=== PATIENT | female | born 1960 | race Caucasian/White ===

== ENCOUNTER 2024-08-10 16:48 | Emergency (ER) | payer BC ==
[~2024-08-10] VITALS: Ht 167.6 cm; Wt 82.5 kg
[~2024-08-10 16:48] MED LIST: EST1T PO; PROG200C11 PO
[2024-08-10] MEDS: charcoal, activated 50 GM/240 ML bottle PO ONE (17:24)
[2024-08-10 17:36] LABS: ABG BASE EXCESS -0.8 mmol/L (-2.0-3.0); ABG HCO3 24.1 mmol/L (21.0-28.0); ABG OXYGEN SATURATION 94.8 % (94.0-98.0); ABG PCO2 (T) 39.5 mmHg (32.0-45.0); ABG PO2 (T) 65.3 mmHg (83.0-108.0); ALLEN'S TEST POSITIVE; FCOHb 10.7 % (0.5-1.5); FHHb 4.6 % (0.0-5.0); FMetHb 0.3 % (0.0-1.5); FO2Hb 84.4 % (94.0-98.0); MODE ROOM AIR; PATIENT TEMPERATURE 36.4; TOTAL HEMOGLOBIN 15.8 G/dl (12.0-16.0)
[2024-08-10 17:40] LABS: BASOPHILS % (AUTO) 0.4 % (0-1); EOSINOPHILS % (AUTO) 0.6 % (0-6); HEMATOCRIT 43.6 % (35.0-45.0); HEMOGLOBIN 14.8 g/dl (12.0-16.0); LYMPHOCYTES # (AUTO) 1.5 X10'3 (1.1-4.8); LYMPHOCYTES % (AUTO) 21.7 % (21-51); MEAN CORPUSCULAR HEMOGLOBIN 31.9 PG (27.0-31.0); MEAN CORPUSCULAR VOLUME 93.8 FL (78-98); MONOCYTES # (AUTO) 0.4 X10'3 (0-0.9); MONOCYTES % (AUTO) 5.3 % (2-12); NEUTROPHILS # (AUTO) 5.1 X10'3 (1.8-7.7); PLATELET COUNT 252 X10'3 (140-440); RED BLOOD COUNT 4.64 X10'6 (4.20-5.60); RED CELL DISTRIBUTION WIDTH 13.6 % (11.5-14.5); WHITE BLOOD COUNT 7.1 X10'3 (4.5-11.0)
[2024-08-10 17:57] LABS: ALANINE AMINOTRANSFERASE 19 U/L (12-78); ALBUMIN 3.6 G/DL (3.4-5.0); ALBUMIN/GLOBULIN RATIO 1.2 (1.1-1.5); ALKALINE PHOSPHATASE 100 IU/L (46-116); ANION GAP 5 (8-16); ASPARTATE AMINO TRANSFERASE 12 U/L (10-37); BILIRUBIN,TOTAL 0.4 MG/DL (0.1-1.0); BLOOD UREA NITROGEN 14 MG/DL (7-18); BUN/CREATININE RATIO 18.4 (10.0-20.0); CALCIUM 9.3 MG/DL (8.5-10.1); CHLORIDE 108 MMOL/L (99-107); CREATININE 0.76 MG/DL (0.40-0.90); GLUCOSE 116 MG/DL (70-104); MAGNESIUM 1.9 MG/DL (1.5-2.4); POTASSIUM 3.7 MMOL/L (3.5-5.1); SODIUM 140 MMOL/L (135-145); TOTAL CARBON DIOXIDE 26.9 MMOL/L (24-32); TOTAL PROTEIN 6.6 G/DL (6.4-8.2); eCRCL 71 ML/MIN; eGFR 77 ML/MIN
[2024-08-10 19:15] LABS: ETHANOL < 10 MG/DL (<10); THYROID STIMULATING HORMONE 0.56 ulU/ml (0.34-4.50)
[2024-08-10 19:18] LABS: ACETAMINOPHEN < 2.0 UG/ML (10-30)
[2024-08-10] MEDS: normal saline 1000ml 1,000 ML IV ONE (19:25)
[2024-08-10 21:14] LABS: URINE AMPHETAMINE SCREEN NEGATIVE (Neg); URINE BARBITUATE SCREEN NEGATIVE (Neg); URINE BENZODIAZEPINES SCREEN NEGATIVE (Neg); URINE CANNABINOID SCREEN NEGATIVE (Neg); URINE COCAINE SCREEN NEGATIVE (Neg); URINE METHADONE SCREEN NEGATIVE (Neg); URINE OPIATE SCREEN NEGATIVE (Neg); URINE PHENCYCLIDINE SCREEN NEGATIVE (Neg)
[2024-08-10 23:37] LABS: SALICYLATE 5.6 MG/DL (4.0-20.0)
[2024-08-11] MEDS: acetaminophen 325mg tablet PO ONE (06:02)
[2024-08-11] MEDS: LIDOcaine 5% patch TP SCH ×2 (11:17→19:17)
[2024-08-11] MEDS: ibuprofen tablet 400 MG TABLET PO ONE ×2 (11:17→19:17)
[2024-08-11 18:52] LABS: BILIRUBIN,URINE NEGATIVE (Neg); CLARITY,URINE CLEAR (Clear); COLOR,URINE YELLOW (Yellow); GLUCOSE, URINE NEGATIVE (Neg); KETONES,URINE NEGATIVE (Neg); LEUKOCYTE ESTERASE ,URINE NEGATIVE (Neg); NITRITES, URINE NEGATIVE (Neg); OCCULT BLOOD,URINE SMALL (Neg); PH,URINE 6.5 (4.8-8.0); PROTEIN,URINE NEGATIVE (Neg); UROBILINOGEN,URINE 0.2 E.U/dL (0.2-1.0)
[2024-08-11 19:13] LABS: UA COLLECTION TYPE VOIDED
[2024-08-11 19:26] LABS: SQUAMOUS EPITHELIAL CELL,UR MANY /LPF (FEW)
[2024-08-11 19:27] LABS: AMORPHOUS URATES 2+; BACTERIA,URINE 1+ /HPF (Neg); COARSE GRANULAR CAST 0-3 /LPF (NEGATIVE); MUCUS STRANDS FEW /LPF (Neg); WBC,URINE 0-4 /HPF (0-4)
[2024-08-11] MEDS: ondansetron 4mg rapidly disintigrating tab PO ONE (19:27)
[2024-08-12] MEDS: HYDROcodone/acetaminophen 10/325mg tab PO ONE ×2 (02:01→07:36)
[2024-08-12] MEDS ORDERED: QUET25TA PO ×2 (02:24)
[2024-08-12] MEDS ORDERED: ESCI20TA39 PO (02:24)
[2024-08-12] MEDS: HYDROcodone/acetaminophen 5mg/325mg tablet PO ONE (17:10)
[2024-08-12 18:25] VITALS: TEMP 97.9
[2024-08-13] MEDS: HYDROcodone/acetaminophen 5mg/325mg tablet PO PRN (02:43)
[2024-08-13 06:05] VITALS: BP 132/87; PULSE 66; O2SAT 98
[2024-08-13 07:40] VITALS: RESP 16
[2024-08-13] MEDS: ibuprofen tablet 400 MG TABLET PO PRN (08:38)
== END 2024-08-13 11:16 | disposition home or self-care (01) ==
LOC: EEVIPCON 16:49 → ER 16:49
DX: T43.222A Poisoning by selective serotonin reuptake inhibitors, intentional self-harm, initial encounter (principal); T43.592A Poisoning by other antipsychotics and neuroleptics, intentional self-harm, initial encounter; T14.91XA Suicide attempt, initial encounter; F32.A Depression, unspecified; Z72.89 Other problems related to lifestyle; Z20.822 Contact with and (suspected) exposure to COVID-19; Z79.899 Other long term (current) drug therapy; Y92.89 Other specified places as the place of occurrence of the external cause
CPT/HCPCS: 36415; 36600; 80053; 80305; 80320; 80329; 81001; 82803; 82948; 83605; 83735; 84443; 85018; 85025; 87811; 93005; 96360; 96361; 99285; J7030; J7040; A4620